=== PATIENT | female | born 1975 | race Caucasian/White ===

== ENCOUNTER → 2017-02-18 | Outpatient (CLI) | payer BC ==
--- NOTE | 2017-02-21 09:33 | MM ---
Reason for exam: screening (asymptomatic). Last mammogram was performed 2 years and 2 months ago. History: Patient had first child at age 33. Physical Findings: A clinical breast exam by your physician is recommended on an annual basis and results should be correlated with mammographic findings. MG Screening Mammo w CAD Bilateral CC and MLO view(s) were taken. Prior study comparison: December 25, 2014, left breast MG diagnostic mammo LT w CAD. June 11, 2014, left breast MG work up mamm w CAD LT. The breast tissue is heterogeneously dense. This may lower the sensitivity of mammography. No significant changes when compared with prior studies. ASSESSMENT: Benign, BI-RAD 2 RECOMMENDATION: Routine screening mammogram of both breasts in 1 year.
== END ==
LOC: RADMAMWWP 09:49
PROVIDERS: ATTEND Obstetrics & Gynecology
DX: Z12.31 Encounter for screening mammogram for malignant neoplasm of breast (principal)

== ENCOUNTER → 2019-10-05 | Outpatient (CLI) | payer BC ==
--- NOTE | 2019-10-08 12:06 | MM ---
Reason for exam: screening (asymptomatic). Last mammogram was performed 2 years and 7 months ago. History: Patient had first child at age 33. Physical Findings: A clinical breast exam by your physician is recommended on an annual basis and results should be correlated with mammographic findings. MG 3D Screening Mammo W/Cad Bilateral CC and MLO view(s) were taken. Prior study comparison: February 18, 2017, bilateral MG screening mammo w CAD. December 25, 2014, left breast MG diagnostic mammo LT w CAD. The breast tissue is heterogeneously dense. This may lower the sensitivity of mammography. No suspicious abnormality. No significant changes when compared with prior studies. ASSESSMENT: Negative, BI-RAD 1 RECOMMENDATION: Routine screening mammogram of both breasts in 1 year.
== END | disposition home or self-care (01) ==
LOC: RADMAMWWP 07:53
PROVIDERS: ATTEND Obstetrics & Gynecology
DX: Z12.31 Encounter for screening mammogram for malignant neoplasm of breast (principal)
CPT/HCPCS: 77063; 77067

== ENCOUNTER → 2020-12-05 | Outpatient (CLI) | payer BC ==
--- NOTE | 2020-12-08 12:00 | MM ---
Reason for exam: screening (asymptomatic). Last mammogram was performed 1 year and 2 months ago. History: Patient had first child at age 33. Physical Findings: A clinical breast exam by your physician is recommended on an annual basis and results should be correlated with mammographic findings. MG 3D Screening Mammo W/Cad Bilateral CC and MLO view(s) were taken. Prior study comparison: October 05, 2019, bilateral MG 3d screening mammo w/cad. February 18, 2017, bilateral MG screening mammo w CAD. The breast tissue is heterogeneously dense. This may lower the sensitivity of mammography. There is no discrete abnormality. ASSESSMENT: Negative, BI-RAD 1 RECOMMENDATION: Routine screening mammogram of both breasts in 1 year.
== END ==
LOC: RADMAMWWP 07:54
PROVIDERS: ATTEND Obstetrics & Gynecology
DX: Z12.31 Encounter for screening mammogram for malignant neoplasm of breast (principal)
CPT/HCPCS: 77063; 77067

== ENCOUNTER → 2020-12-26 | Outpatient (CLI) | payer BC | END | disposition home or self-care (01) | LOC: LABWHC1 09:12 | PROVIDERS: ATTEND Obstetrics & Gynecology | DX: R19.00 Intra-abdominal and pelvic swelling, mass and lump, unspecified site (principal) | CPT/HCPCS: 36415 ==

== ENCOUNTER → 2021-01-19 | Outpatient (CLI) | payer BC ==
[2021-01-19 10:07] LABS: Basophils # (A) 0.1 k/uL (0-0.2); Basophils % (A) 1 %; Eosinophils # (A) 0.1 k/uL (0-0.7); Eosinophils % (A) 1 %; HCT 37.9 % (34.0-46.0); Lymphocytes # (A) 1.2 k/uL (1.0-4.8); Lymphocytes % (A) 29 %; MCH 31.1 pg (25.0-35.0); MCHC 34.4 g/dL (31.0-37.0); MCV 90.4 fL (80.0-100.0); Mean Platelet Volume 9.1; Monocytes # (A) 0.2 k/uL (0-1.0); Monocytes % (A) 5 %; Neutrophils # (A) 2.7 k/uL (1.3-7.7); Neutrophils % (A) 62 %; Platelet Count 187 k/uL (150-450); RBC 4.19 m/uL (3.80-5.40); RDW 12.7 % (11.5-15.5); WBC 4.3 k/uL (3.8-10.6)
[2021-01-19 11:01] LABS: African American GFR (CKD) >90 (>60 ml/min/1.73 sqM); Anion Gap 10 mmol/L; Blood Urea Nitrogen 13 mg/dL (7-17); Carbon Dioxide 26 mmol/L (22-30); Chloride 102 mmol/L (98-107); Glucose 85 mg/dL (74-99); Non-African American GFR(CKD) >90 (>60 ml/min/1.73 sqM); Potassium 4.2 mmol/L (3.5-5.1); Sodium 138 mmol/L (137-145)
== END | disposition home or self-care (01) ==
LOC: LABPAT 09:08
PROVIDERS: ATTEND Obstetrics & Gynecology
DX: Z01.812 Encounter for preprocedural laboratory examination (principal); N83.201 Unspecified ovarian cyst, right side
CPT/HCPCS: 36415; 80051; 82565; 82947; 84520; 85025; 86850; 86900; 86901; 87086

== ENCOUNTER 2021-01-27 05:46 | Day surgery (SDC) | payer BC ==
[2021-01-22 15:10] VITALS: BMI 24.0
[~2021-01-27 05:46] MED LIST: DEXAMETHASONE SOD PHOSPHATE 4 MG/ML 1 ML VIAL IV ONE; LIDOCAINE 1% (10MG/ML) FOR IV START INTRADERMA PRN; MIDAZOLAM 2 MG/2 ML VIAL IV PRN; ONDANSETRON 4 MG/2 ML VIAL IVP ONE
[2021-01-27] MEDS: LACTATED RINGERS 1,000 ML IV SCH (06:15)
[2021-01-27] MEDS ORDERED: fentaNYL (PF) 50 MCG/ML 2 ML AMP IVP PRN (07:00)
[2021-01-27] MEDS ORDERED: MIDAZOLAM 2 MG/2 ML VIAL IVP ONE (07:19)
[2021-01-27] MEDS ORDERED: SUCCINYLCHOLINE CHLORIDE 100 MG/5 ML SYR IV ONE (07:24)
[2021-01-27] MEDS ORDERED: PROPOFOL 10 MG/ML 20 ML VIAL IV ONE (07:24)
[2021-01-27] MEDS ORDERED: NEOSTIGMINE 1 MG/ML 10 ML VIAL ONE (07:24)
[2021-01-27] MEDS ORDERED: LIDOCAINE 1% INJ 10MG/ML (20 ML MDV) ONE (07:24)
[2021-01-27] MEDS ORDERED: ROCURONIUM 10 MG/ML (5 ML VIAL) IV ONE (07:24)
[2021-01-27] MEDS ORDERED: GLYCOPYRROLATE 0.2 MG/ML 2 ML VIAL ONE (07:24)
[2021-01-27] MEDS ORDERED: MORPHINE SULFATE (PF) 0.3 MG/0.3 ML SYR ONE (07:24)
[2021-01-27] MEDS ORDERED: fentaNYL (PF) 50 MCG/ML 2 ML AMP ONE (07:24)
[2021-01-27] MEDS ORDERED: KETOROLAC 15 MG/ML 1 ML VIAL ONE (07:24)
[2021-01-27] MEDS ORDERED: LACTATED RINGERS 1,000 ML IV ONE (08:19)
[2021-01-27] MEDS ORDERED: KETOROLAC 15 MG/ML 1 ML VIAL IVP PRN (08:43)
[2021-01-27] MEDS ORDERED: diphenhydrAMINE 50 MG/ML 1 ML VIAL IVP PRN (08:43)
[2021-01-27] MEDS ORDERED: METOCLOPRAMIDE 5 MG/ML 2 ML VIAL IVP PRN (08:43)
[2021-01-27] MEDS: HYDROmorphone 0.5 MG/0.5 ML SYRINGE IVP PRN ×3 (08:43→09:16)
[2021-01-27] MEDS ORDERED: SIMETHICONE 80 MG CHEWABLE PO PRN (08:43)
--- NOTE | 2021-01-27 08:43 | P.OP ---
Date of Procedure: 01/27/21 Preoperative Diagnosis: Complex 8 cm right adnexal mass Postoperative Diagnosis: Same, right endometrioma Procedure(s) Performed: Mini laparotomy, right salpingo-oophorectomy, copious pelvic irrigation Anesthesia: JAZZMINE Surgeon: Sara Hartmann [employer] Waste Disposal Manager #1: Petty Blancas Estimated Blood Loss (ml): 50 IV fluids (ml): 900 Urine output (ml): 150 Pathology: other (Right tube and ovary, endometrioma) Condition: stable Disposition: PACU Operative Findings: A large 8 cm right pelvic endometrioma, pelvis otherwise negative. Normal- appearing left tube and ovary. Description of Procedure: Patient is brought to the [facility] and suite where a general anesthetic is administered. She's placed in the dorsal supine position. Sapp catheter placed to drainage. The appropriate timeout is performed to assure proper patient and procedural identification. Antibiotics are given. The abdomen is prepped and draped in the usual sterile fashion. A low transverse skin incision is made in the midline approximate 6 cm in diameter. Subcutaneous tissue is opened. Fascia is isolated, scored, extended bilaterally with curved Koch scissors. Peritoneum is next identified and incised, there is no bowel or bladder involvement. The O'William O'Holder retractor is placed in the bladder and bowel are mobilized from the operative field. A large tense 8-10 cm right adnexal endometrioma is identified and gently grasped with a Luke clamp. She was brought into the surgical field. The right tube and ovary are evaluated. Marley clamp was used across the pedicle and the right tube and ovary are removed along with the endometrioma and sent to pathology for evaluation. Unfortunately the endometrioma did rupture upon excision. 0 Vicryl sutures used on the pedicle it is tied, flashed, and retied for excellent hemostasis. The pelvis is then generously irrigated, no visible endometriotic implants are left. The left tube and ovary are evaluated, appear to be healthy and normal and left in situ. Peritoneum is allowed to close by secondary intention. Fascia is closed in a running locking stitch of 0 Vicryl with over ligation in the midline. Subcutaneous tissue is irrigated, clean and dry. It is reapproximated with 2-0 Vicryl. 4-0 undyed Monocryl is used for final skin closure in a subcuticular manner. Steri-Strips and Mastisol are applied to the wound. All sponge needle and instrument counts are correct. Sapp is draining clear urine. Total estimated blood loss 50 mL's.
[2021-01-27] MEDS ORDERED: NALOXONE 0.4 MG/ML 1 ML VIAL IV PRN (09:18)
[2021-01-27] MEDS ORDERED: MORPHINE SULFATE 2 MG/ML SYRINGE IVP PRN (09:18)
--- NOTE | 2021-01-27 09:22 | P.ANPRN ---
Procedure Note - Anesthesia - Epidural/Spinal Spinal Date of Procedure: 01/27/21 Procedure Start Time: 07:24 Procedure Stop Time: 07:30 Location of Patient: PreOp Indication: Acute Post-Operative Pain Sedation Type: Sedate with meaningful contact maintained Preparation: Sterile Prep Position: Sitting Needle Guage: 25 (injection at L3-L4 interspace) Injectate: Other (Duramorph 300mcg, fentanyl 25mcg) Blood Aspirated: No Pain Paresthesia on Injection Noted: No Events: Uneventful and Well Tolerated
--- NOTE | 2021-01-28 05:58 | P.PN ---
Progress Note - Text Progress Note Date: 01/28/21 Postop day 1 from a mini laparotomy done by Dr. Hartmann She is doing pretty well. She had of Duramorph spinal 300 g of preservative-free morphine. She has mild pruritus, her pain is been under good control throughout the night per the nurse. She's been able to ambulate. She's been able to urinate. She has been passing flatus. There is no lower extremity weakness. These contact anesthesia if there is any issues.
[2021-01-28] MEDS: LACTATED RINGERS 1,000 ML IV SCH (07:06)
--- NOTE | 2021-01-28 08:08 | P.DS ---
Providers Date of admission: t Expected date of discharge: 01/28/21 Attending physician: Sara Hartmann Primary care physician: Dejuan Chacon [facility] Course: This is a 45-year-old female who presented with a complex 8-10 cm right adnexal mass, followed sonographically, with growth noted over the past several months. [place] testing was reassuring. Patient elected to proceed with mini laparotomy and right salpingo-oophorectomy. She is a generally healthy individual, please see my dictated history and physical for details. Yesterday patient underwent a mini laparotomy, right ovarian salpingectomy. Findings were consistent with a large endometrioma. The rest of the pelvis appeared negative for endometriosis. Surgery was unremarkable, please see dictated operative note for details. This morning the patient is doing quite well. She is voiding, ambulating, passing flatus. Incision is clean and dry, intact, Steri-Strips applied. Abdomen is soft and nontender, no CVA tenderness. Vital signs upon stable and she is afebrile. Pain is well managed. She is judged to be in very good condition for discharge home. She will follow-up with me in the office in 2 weeks. I have reminded her no intercourse, tampons or douching. No heavy lifting. No driving for 2 weeks. She will use [id number] ibuprofen products as needed for pain, 600 mg every 6 hours, to alternate with Tylenol if needed for breakthrough pain. She will call with any fevers shakes or chills, foul smelling vaginal drainage, with redness drainage or bleeding of the incision, with any pain not alleviated by [id number] products, or indeed with any concerns. Assessment: Doing well postoperative day #1 Patient Condition at Discharge: Good Plan - Discharge Summary Discharge Rx Participant: No New Discharge Prescriptions: No Action No Known Home Medications Discharge Medication List No Known Home Medications 01/22/21 [History] Follow up Appointment(s)/Referral(s): Sara Hartmann MD [STAFF PHYSICIAN] - 2 Weeks Discharge Disposition: HOME SELF-CARE
[2021-01-28 09:22] VITALS: BP 100/55; PULSE 84; RESP 20; TEMP 98
== END 2021-01-28 10:00 | disposition home or self-care (01) ==
LOC: OR 05:46 → 4FBP 09:08 → OR 01-28 10:00
PROVIDERS: ATTEND Obstetrics & Gynecology
DX: Z98.890 Other specified postprocedural states (principal); Z80.41 Family history of malignant neoplasm of ovary; Z80.8 Family history of malignant neoplasm of other organs or systems
CPT/HCPCS: 81025; 88108; 88305; 88342; 88307; 88341; 87635; 58661; J2250; J1100; J2710; J0690; J2405; J2001; J2274; J3010; J1885 ×2; J0330; J2704; J1170; 86850; 86900; 86901

== ENCOUNTER → 2022-12-23 | Outpatient (CLI) | payer BC ==
--- NOTE | 2022-12-24 09:04 | MM ---
Reason for Exam: Screening (asymptomatic). Last screening mammogram was performed 12 month(s) ago. Patient History: Menarche at age 16. First Full-Term at age 33. Late child-bearing (after 30). Left ovary removed at age 45. Premenopausal. Risk Values: Teressa 5 year model risk: 1.0%. NCI Lifetime model risk: 11.9%. Prior Study Comparison: 10/05/2019 Bilateral Screening Mammogram, [facility]. 12/05/2020 Bilateral Screening Mammogram, [facility]. 12/16/2021 Bilateral Screening Mammogram, [facility]. Tissue Density: The breast tissue is heterogeneously dense. This may lower the sensitivity of mammography. Findings: Analyzed By CAD. There is no suspicious group of microcalcifications or new suspicious mass in either breast. Overall Assessment: Negative, BI-RAD 1 Management: Screening Mammogram of both breasts in 1 year. A clinical breast exam by your physician is recommended on an annual basis and results should be correlated with mammographic findings. Electronically signed and approved by: Darryl Barraza D.O.
== END | disposition home or self-care (01) ==
LOC: RADMAMWWP 09:23
PROVIDERS: ATTEND Obstetrics & Gynecology
DX: Z12.31 Encounter for screening mammogram for malignant neoplasm of breast (principal)
CPT/HCPCS: 77063; 77067

== ENCOUNTER → 2024-02-29 | Outpatient (CLI) | payer BC ==
--- NOTE | 2024-03-01 11:55 | MM ---
Reason for Exam: Screening (asymptomatic). Last mammogram was performed 1 year(s) and 2 month(s) ago. Patient History: Menarche at age 16. First Full-Term at age 33. Late child-bearing (after 30). Left ovary removed at age 45. Premenopausal. Last menstrual period: 02/02/2024 Risk Values: Teressa 5 year model risk: 1.1%. NCI Lifetime model risk: 11.6%. Prior Study Comparison: 12/05/2020 Bilateral Screening Mammogram, [facility]. 12/16/2021 Bilateral Screening Mammogram, [facility]. 12/23/2022 Bilateral MG 3D screening mammo w/cad, [facility]. Tissue Density: The breasts are heterogeneously dense, which may obscure small masses. Findings: Analyzed By CAD. There is no suspicious group of microcalcifications or new suspicious mass in either breast. Benign-appearing lymph nodes in the axilla. Overall Assessment: Benign, BI-RAD 2 Management: Screening Mammogram of both breasts in 1 year. . Patient should continue monthly self-breast exams. A clinical breast exam by your physician is recommended on an annual basis. This exam should not preclude additional follow-up of suspicious palpable abnormalities. Note on Teressa scores and lifetime risk: 1. A Teressa score greater than 3% is considered moderate risk. If this is the case, consider specialist referral to assess eligibility for a risk reducing agent. 2. If overall lifetime risk for the development of breast cancer is 20% or higher, the patient may qualify for future screening with alternating mammogram and breast MRI. Electronically signed and approved by: Williams Snyder M.D. Radiologis
== END | disposition home or self-care (01) ==
LOC: RADMAMWWP 07:34
PROVIDERS: ATTEND Obstetrics & Gynecology
DX: Z12.31 Encounter for screening mammogram for malignant neoplasm of breast (principal)
CPT/HCPCS: 77063; 77067

== ENCOUNTER → 2025-03-26 | Outpatient (CLI) | payer BC ==
--- NOTE | 2025-03-26 08:35 | MM ---
Reason for Exam: Screening (asymptomatic). Last mammogram was performed 1 year(s) and 1 month(s) ago. Patient History: Menarche at age 16. First Full-Term at age 33. Late child-bearing (after 30). Left ovary removed at age 45. Premenopausal. Last menstrual period: 03/20/2025 Risk Values: Teressa 5 year model risk: 1.1%. NCI Lifetime model risk: 11.4%. Prior Study Comparison: 02/18/2017 Bilateral Screening Mammogram, [facility]. 10/05/2019 Bilateral Screening Mammogram, [facility]. 12/05/2020 Bilateral Screening Mammogram, [facility]. 12/16/2021 Bilateral Screening Mammogram, [facility]. 12/23/2022 Bilateral MG 3D screening mammo w/cad, [facility]. 02/29/2024 Bilateral MG 3D screening mammo w/cad, [facility]. Tissue Density: The breasts are heterogeneously dense, which may obscure small masses. Findings: Analyzed By CAD. Right breast: There is no suspicious group of microcalcifications or new suspicious mass. Left breast: There is no suspicious group of microcalcifications or new suspicious mass. Overall Assessment: Negative, BI-RAD 1 Management: Screening Mammogram of both breasts in [address] [facility] will attempt to contact patient to return for supplemental views and ultrasound if indicated. Patient should continue monthly self-breast exams. A clinical breast exam by your physician is recommended on an annual basis. This exam should not preclude additional follow-up of suspicious palpable abnormalities. Note on Teressa scores and lifetime risk: 1. A Teressa score greater than 3% is considered moderate risk. If this is the case, consider specialist referral to assess eligibility for a risk reducing agent. 2. If overall lifetime risk for the development of breast cancer is 20% or higher, the patient may qualify for future screening with alternating mammogram and breast MRI. [facility], , 03/26/2025 8:31 AM. Electronically signed and approved by: Yayo Crump DO
== END | disposition home or self-care (01) ==
LOC: RADMAMWWP 07:18
PROVIDERS: ATTEND Obstetrics & Gynecology
DX: Z12.31 Encounter for screening mammogram for malignant neoplasm of breast (principal); R92.333 Mammographic heterogeneous density, bilateral breasts
CPT/HCPCS: 77063; 77067